=== PATIENT | female | born 1995 | race Caucasian/White ===

== ENCOUNTER 2019-03-03 08:19 | Emergency (ER) | payer OTHER ==
[2019-03-03 08:29] VITALS: BP 126/55; PULSE 84; TEMP 98.2; BMI 22.1
[2019-03-03] MEDS ORDERED: IBUPROFEN 600 MG TABLET (FP) PO ONE ×2 (08:31→08:57)
--- NOTE | 2019-03-03 08:57 | PDOC ---
History of Present Illness - General Chief Complaint: Injury Stated Complaint: LT THUMB INJURY Time Seen by Provider: 03/03/19 08:31 - History of Present Illness Initial Comments: 03/03/19 08:48 CHIEF COMPLAINT: thumb pain HISTORY OF PRESENT ILLNESS: 23 yo F presents to [place] with thumb pain. Patient reports she was working and pulling blankets out of the blanket warmer when she felt sudden pain to her left thumb. She does not remember any inciting trauma but "may have hit the thumb on the top of the warmer or something." Patient has iced the thumb without relief. No recent travel or sick contacts. PAST MEDICAL HISTORY: Denies past medical history FAMILY HISTORY: Denies SOCIAL HISTORY: Denies tobacco, alcohol, illicit drug use. SURGICAL HISTORY: Denies ALLERGIES: No known drug allergies REVIEW OF SYSTEMS General/Constitutional: Denies fever or chills. Denies weakness, weight change. HEENT: Denies change in vision. Denies ear pain or discharge. Denies sore throat. Cardiovascular: Denies chest pain or shortness of breath. Respiratory: Denies cough, wheezing, or hemoptysis. Gastrointestinal: Denies nausea, vomiting, diarrhea or constipation. Denies rectal bleeding. Genitourinary: Denies dysuria, frequency, or change in urination. Musculoskeletal: Left thumb pain. Skin and breasts: Denies rash or easy bruising. Neurologic: Denies headache, vertigo, loss of consciousness, or loss of sensation. Psychiatric: Denies depression or anxiety. Endocrine: Denies increased thirst. Denies abnormal weight change. Hematologic/Lymphatic: Denies anemia, easy bleeding, or history of blood clots. Allergic/Immunologic: Denies hives or skin allergy. Denies latex allergy. PHYSICAL EXAM General Appearance: Well-appearing, appropriately dressed. No apparent distress , no intoxication. HEENT: EOMI, PERRLA, normal ENT inspection, normal voice, TMs normal, pharynx normal. No conjunctival pallor. No photophobia, scleral icterus. Neck: Supple. Trachea midline. No tenderness, rigidity, carotid bruit, stridor , lymphadenopathy, or thyromegaly. Respiratory/Chest: Lungs CTAB. No shortness of breath, chest tenderness, respiratory distress, accessory muscle use. No crackles, rales, rhonchi, stridor , wheezing, dullness Cardiovascular: RRR. S1, S2. No JVD, murmur, bradycardia, tachycardia. Vascular Pulses: Dorsalis-Pedis (R): 2+, Dorsalis-Pedis (L): 2+ Gastrointestinal/Abdominal: Normal bowel sounds. Abdomen soft, non-distended. No tenderness or rebound tenderness. No organomegaly, pulsatile mass, guarding , hernia, hepatomegaly, splenomegaly. Lymphatic: No adenopathy, tenderness. Musculoskeletal/Extremities: Limited ROM to left thumb secondary to pain. No swelling, ecchymosis, or deformity to left thumb. FROM of all other extremities, normal capillary refill. Pelvis Stable. No CVA tenderness. No tenderness to extremities, pedal edema, swelling, erythema or deformity. Integumentary: Appropriate color, dry, warm. No cyanosis, erythema, jaundice or rash Neurologic: laborer laboratory II-XII intact. Fully oriented, alert. Appropriate mood/affect. Motor strength 5/5. No appreciable EOM palsy, facial droop or sensory deficit. Past History - Past Medical History Allergies/Adverse Reactions: Allergies Allergy/AdvReac Type Severity Reaction Status Date / Time bee venom protein (honey bee) Allergy Verified 03/03/19 08:30 ARTIFICIAL STAWBERRY FLAVOR Allergy Uncoded 03/03/19 08:30 Home Medications: Ambulatory Orders Etonogestrel [Nexplanon] 68 mg SQ ASDIR 03/03/19 NK [No Known Home Medication] 03/03/19 Asthma: No COPD: No - Psycho Social/Smoking Cessation Hx Smoking History: Never smoked Hx Alcohol Use: No Drug/Substance Use Hx: No *Physical Exam - Vital Signs Last Vital Signs Temp Pulse Resp BP Pulse Ox 98.2 F 84 14 126/55 L 99 03/03/19 08:27 03/03/19 08:27 03/03/19 08:27 03/03/19 08:27 03/03/19 08:27 ED Treatment Course - RADIOLOGY Radiology Studies Ordered: Category Date Time Status HAND- LEFT [RAD] Stat Radiology 03/03/19 08:31 Completed Medical Decision Making - Medical Decision Making 03/03/19 08:57 23 yo F presents to [facility] with thumb pain. -ibuprofen -xray xray negative for fracture. thumb splinted. Discharge - Discharge Information Problems reviewed: Yes Clinical Impression/Diagnosis: Pain of left thumb Condition: Stable Disposition: HOME - Admission No - Follow up/Referral Referrals: Mitchell Boyle MD [Staff Physician] - - Patient Discharge Instructions Patient Printed Discharge Instructions: DI for Finger Sprain - Post Discharge Activity
== END 2019-03-03 09:18 | disposition home or self-care (01) ==
LOC: JERFT 08:19
PROC: 2W3HX1Z Immobilization of Left Thumb using Splint (ICD-10-PCS; principal; 2019-03-03)
DX: S63.622A Sprain of interphalangeal joint of left thumb, initial encounter (principal); X50.9XXA Other and unspecified overexertion or strenuous movements or postures, initial encounter; Y93.89 Activity, other specified; Y92.238 Other place in hospital as the place of occurrence of the external cause; Y99.0 Civilian activity done for income or pay
CPT/HCPCS: 73130-TC-LT-FY; 99281-25

== ENCOUNTER 2019-04-09 14:42 | Emergency (ER) | payer SELFPAY ==
[2019-04-09 14:45] VITALS: TEMP 98; BMI 23.0
[2019-04-09] MEDS ORDERED: MECLIZINE HCL 25 MG TABLET (FP) PO ONE ×2 (14:51→15:45)
[2019-04-09] MEDS ORDERED: SODIUM CHLORIDE 0.9% 1000 ML INFUS.BAG IV ONE ×2 (14:52→16:39)
[2019-04-09] MEDS ORDERED: MECLIZINE HCL 25 MG TABLET (FP) ONE ×2 (14:55→16:17)
[2019-04-09 15:18] LABS: BASO % 1.2 % (0-2.0); EOS % 3.1 % (0-4.5); HEMATOCRIT 35.6 % (32.4-45.2); HEMOGLOBIN 11.9 GM/dL (10.7-15.3); LYMPH % 41.2 % (8-40); MCH 29.4 pg (25.7-33.7); MCHC 33.3 g/dl (32.0-36.0); MEAN CELL VOLUME 88.1 fl (80-96); MEAN PLT VOLUME 8.7 fl (7.5-11.1); MONO % 9.3 % (3.8-10.2); NEUT % 45.2 % (42.8-82.8); PLATELET COUNT 266 K/MM3 (134-434); RBC 4.04 M/mm3 (3.60-5.2); RDW 13.4 % (11.6-15.6); WHITE BLOOD COUNT 7.2 K/mm3 (4.0-10.0)
--- NOTE | 2019-04-09 15:43 | PDOC ---
History of Present Illness - General Chief Complaint: Lightheaded Stated Complaint: DIZZNESS Time Seen by Provider: 04/09/19 14:51 History Source: Patient Exam Limitations: No Limitations - History of Present Illness Initial Comments: 04/09/19 15:36 23F with a PMH of vertigo who presents to the ER with complaints of dizziness. The patient states that she was working and developed sudden onset room spinning which is similar to her vertiginous symptoms. She states that this came on suddenly without nausea, vomiting, CP, SOB, numbness, tingling, weakness. She denies syncope. Past History - Past Medical History Allergies/Adverse Reactions: Allergies Allergy/AdvReac Type Severity Reaction Status Date / Time bee venom protein (honey bee) Allergy Verified 04/09/19 14:45 ARTIFICIAL STAWBERRY FLAVOR Allergy Uncoded 04/09/19 14:45 Home Medications: Ambulatory Orders Etonogestrel [Nexplanon] 68 mg SQ ASDIR 03/03/19 NK [No Known Home Medication] 03/03/19 Asthma: No COPD: No - Psycho Social/Smoking Cessation Hx Smoking History: Never smoked Hx Alcohol Use: No Drug/Substance Use Hx: No Review of Systems - Review of Systems Able to Perform ROS?: Yes Comments:: 04/09/19 16:37 GENERAL/CONSTITUTIONAL: No fever or chills. No weakness. HEAD, EYES, EARS, NOSE AND THROAT: No change in vision. No ear pain or discharge. No sore throat. CARDIOVASCULAR: No chest pain, palpitations, or lightheadedness. RESPIRATORY: No cough, wheezing, shortness of breath, or hemoptysis. GASTROINTESTINAL: No abdominal pain, nausea, vomiting, diarrhea, or constipation. GENITOURINARY: No dysuria, frequency, hematuria, or change in urination. MUSCULOSKELETAL: No joint or muscle swelling or pain. No neck or back pain. SKIN: No rash or lesions. NEUROLOGIC: + for vertiginous dizziness. No headache, numbness, tingling, focal weakness, loss of consciousness, or change in strength/sensation. Is the patient limited Italian proficient: No *Physical Exam - Vital Signs Last Vital Signs Temp Pulse Resp BP Pulse Ox 98.0 F 88 18 130/54 L 97 04/09/19 14:44 04/09/19 14:44 04/09/19 14:44 04/09/19 14:44 04/09/19 14:44 - Physical Exam 04/09/19 16:37 GENERAL: Well developed, well nourished. Awake and alert. No acute distress. HEENT: Normocephalic, atraumatic. Hearing grossly normal. Moist mucous membranes. PERRLA, EOMI. Vertiginous symptoms amplified by looking L with persistent nystagmus noted. No conjunctival pallor. Sclera are non-icteric. NECK: Supple. Full ROM. CARDIOVASCULAR: Regular rate and rhythm. No murmurs, rubs, or gallops. PULMONARY: No evidence of respiratory distress. Lungs clear to auscultation bilaterally. No wheezing, rales or rhonchi. ABDOMINAL: Soft. Non-tender. Non-distended. No rebound or guarding. No organomegaly. Normoactive bowel sounds. GENITOURINARY: No CVA tenderness bilaterally. MUSCULOSKELETAL: Normal range of motion at all joints. No bony deformities or tenderness. EXTREMITIES: No cyanosis. No clubbing. No edema. No calf tenderness or swelling. SKIN: Warm and dry. Normal capillary refill. No rashes. No jaundice. NEUROLOGICAL: Alert, awake, appropriate. Cranial nerves 2-12 grossly intact. No deficits to light touch and temperature in face, upper extremities and lower extremities. 5/5 strength in deltoids, biceps, triceps, quadriceps, hamstrings, and gastrocnemius. Normal speech. Gait is normal without ataxia. PSYCHIATRIC: Cooperative. Good eye contact. Appropriate mood and affect. ED Treatment Course - LABORATORY CBC & Chemistry Diagram: 04/09/19 13:00 04/09/19 14:54 - ADDITIONAL ORDERS Additional order review: Laboratory Results 04/09/19 13:00 Serum , Qual Negative 04/09/19 13:00 RBC 4.04 MCV 88.1 MCHC 33.3 RDW 13.4 MPV 8.7 Neutrophils % 45.2 Lymphocytes % 41.2 H Monocytes % 9.3 Eosinophils % 3.1 Basophils % 1.2 - Medications Given in the ED: ED Medications Discontinued Medications Generic Name Dose Route Start Last Admin Trade Name Freq PRN Reason Stop Dose Admin Meclizine HCl 50 mg 04/09/19 14:51 04/09/19 15:05 Antivert - PO 04/09/19 14:52 50 mg ONCE ONE Administration Sodium Chloride 1,000 ml 04/09/19 14:52 04/09/19 15:00 Normal Saline - IV 04/09/19 14:53 1,000 ml ONCE ONE Administration Medical Decision Making - Medical Decision Making 04/09/19 16:40 23F with a PMH of positional vertigo who presents with vertiginous symptoms. PE remarkable for persistent L horizontal nystagmus. Given meclizine w/o help. Will give PO valium and fluids and reassess. 04/09/19 18:41 Pt did not improve with valium but improved with reglan, benadryl, and tylenol. Will d/c with PCP and neuro f/u. Discharge - Discharge Information Problems reviewed: Yes Clinical Impression/Diagnosis: Dizziness, nonspecific Condition: Good Disposition: HOME - Admission No - Follow up/Referral Referrals: [facility] [place] [facility] [place] [Provider Group] Adam Harrington MD [Staff Physician] - - Patient Discharge Instructions Patient Printed Discharge Instructions: Vertigo, DI for Dizziness-Nonvertigo Additional Instructions: Your ER visit is not complete until your follow up with your primary care physician. Please follow up with your primary care physician in 1-2 days. Please return to the ER if you have any signs or symptoms of chest pain, shortness of breath, uncontrollable fever, chills, nausea, vomiting, numbness, tingling, or weakness in any part of your body, changes in vision, or slurred speech. Please return to the ER if symptoms persist, worsen, or new symptoms arise. - Post Discharge Activity Work/Back to School Note: Back to Work
[2019-04-09 16:05] LABS: BILIRUBIN,TOTAL 0.2 mg/dL (0.2-1); BLOOD UREA NITROGEN 22.4 mg/dL (7-18); CALCIUM 9.1 mg/dL (8.5-10.1); CREATININE 0.9 mg/dL (0.55-1.3); POTASSIUM 4.1 mmol/L (3.5-5.1); TOT PROT 7.5 g/dl (6.4-8.2)
[2019-04-09] MEDS ORDERED: diazePAM 5 MG TABLET PO ONE (16:20)
--- NOTE | 2019-04-09 16:21 | PDOC ---
Documentation entered by Claudia Mendez SCRIBE, acting as scribe for Lisa Joseph MD. Lisa Joseph MD: This documentation has been prepared by the Andrea pike Adrianna, SCRIBE, under my direction and personally reviewed by me in its entirety. I confirm that the documentation accurately reflects all work, treatment, procedures, and medical decision making performed by me. Attending Attestation - Resident Resident Name: [email or web address] - ED Attending Attestation I have performed the following: I have examined & evaluated the patient, The case was reviewed & discussed with the resident, I agree w/resident's findings & plan, Exceptions are as noted - HPI HPI: The patient is a 23 year old female, with a significant PMH of vertigo, who presents to the ED for evaluation of sudden onset dizziness while at work. Patient is a MA at [employer], and was working today when she began experiencing room- spinning dizziness. She notes this felt similar to her prior episodes of vertigo. Denies any nausea or vomit at this time. Allergies: Bee venom protein, artificial strawberry flavor Surgical History: None reported Social History: Denies EtOH, tobacco, or illicit drug use - Physicial Exam PE: 04/09/19 16:19 awake alert lungs clear bilat heart rrr no mrg abd soft nt nd ext wwp. finger nose normal. heel to martin normal. gait normal. positive kelly hallpike to right . strength 5/5 all four ext. - Medical Decision Making 04/09/19 16:19 23 yo F with positional vertigo. does have h/o same. normal cerebellar exam. positive kelly hallpike to right. will treat with meclizine. labs normal will try valium 5mg po. iv hydration. reassess. 04/09/19 16:21 lab normal. hcg negative.
[2019-04-09] MEDS ORDERED: diazePAM 5 MG TABLET ONE (16:22)
[2019-04-09 16:53] VITALS: BP 117/66
[2019-04-09 16:54] VITALS: PULSE 90
[2019-04-09] MEDS ORDERED: METOCLOPRAMIDE HCL INJECTION 10 MG/2 ML VIAL IVPB ONE (17:01)
[2019-04-09] MEDS ORDERED: ACETAMINOPHEN 1000 MG/100 ML VIAL (NON FORMULARY) IVPB ONE (17:01)
[2019-04-09] MEDS ORDERED: diphenhydrAMINE HCL 25 MG CAPSULE (FP) PO ONE ×2 (17:01→17:49)
[2019-04-09] MEDS ORDERED: ACETAMINOPHEN INJECTION 100 ML IVPB ONE (17:46)
[2019-04-09] MEDS ORDERED: METOCLOPRAMIDE HCL INJECTION 10 MG/2 ML VIAL ONE (17:46)
--- NOTE | 2019-04-10 10:12 | EKG ---
Test Reason : Blood Pressure : / mmHG Vent. Rate : 085 BPM Atrial Rate : 085 BPM P-R Int : 158 ms QRS Dur : 072 ms QT Int : 382 ms P-R-T Axes : 055 048 040 degrees QTc Int : 454 ms NORMAL SINUS RHYTHM NORMAL ECG NO PREVIOUS ECGS AVAILABLE Confirmed by RANULFO DE LUNA MD ([id number]) on 04/10/2019 10:12:07 AM Referred By: Confirmed By:RANULFO DE LUNA MD
== END 2019-04-09 19:18 | disposition home or self-care (01) ==
LOC: JER 14:42
PROC: 3E033NZ Introduction of Analgesics, Hypnotics, Sedatives into Peripheral Vein, Percutaneous Approach (ICD-10-PCS; principal; 2019-04-09)
PROC: 3E0337Z Introduction of Electrolytic and Water Balance Substance into Peripheral Vein, Percutaneous Approach (ICD-10-PCS; 2019-04-09)
DX: R42 Dizziness and giddiness (principal); Z91.030 Bee allergy status; Z91.048 Other nonmedicinal substance allergy status
CPT/HCPCS: 36415; 80053; 84703; 85025; 93005; 93010; 99284-25; J0131; J7030